=== PATIENT | female | born 1995 | race Caucasian/White ===

== ENCOUNTER 2017-05-11 21:55 | Emergency (ER) | payer SELFPAY ==
[2017-05-11 23:05] VITALS: BP 109/51; PULSE 68; TEMP 98.3; BMI 27.4
== END 2017-05-11 23:06 | disposition left against medical advice (07) ==
LOC: JER 21:55
DX: Z53.21 Procedure and treatment not carried out due to patient leaving prior to being seen by health care provider (principal)
CPT/HCPCS: 99281-25

== ENCOUNTER 2017-10-10 18:41 | Emergency (ER) | payer OTHER ==
[2017-10-10 18:47] VITALS: BP 130/80; PULSE 92; TEMP 98.3; BMI 32.9
--- NOTE | 2017-10-10 18:47 | PDOC ---
Rapid Medical Evaluation Chief Complaint: Pain Time Seen by Provider: 10/10/17 18:45 Medical Evaluation: Allergies Allergy/AdvReac Type Severity Reaction Status Date / Time No Known Allergies Allergy Verified 10/10/17 18:45 10/10/17 18:46 I have performed a brief in-person evaluation of this patient. The Patient presents with a chief complaint of lower abdominal pain with diarrhea x 2 days. G1, approximately 6 weeks . Denies vaginal bleeding, no burning with urination Pertinent physical exam findings are: NAD unlabored breathing no cva tenderness I have ordered the following: urinalysis, urine ordered The patient will proceed to the ED for further evaluation.
[2017-10-10 19:26] LABS: URINE APPEARANCE CLEAR; URINE BILIRUBIN NEGATIVE (NEGATIVE); URINE BLOOD 2+ (NEGATIVE); URINE COLOR LTYELLOW; URINE GLUCOSE (UA) NEGATIVE (NEGATIVE); URINE KETONE NEGATIVE (NEGATIVE); URINE NITRITE NEGATIVE (NEGATIVE); URINE PROTEIN NEGATIVE (NEGATIVE); URINE UROBILINOGEN NEGATIVE mg/dL (0.2-1.0)
[2017-10-10 19:29] LABS: URINE RBC 2; URINE WBC 1
[2017-10-10] MEDS ORDERED: SODIUM CHLORIDE 0.9% 1000 ML INFUS.BAG IV ONE (19:48)
[2017-10-10 20:12] LABS: BASOPHIL 0.6 % (0-2.0); EOSINOPHIL 2.5 % (0-4.5); MCH 28.5 pg (25.7-33.7); MCHC 33.9 g/dl (32.0-36.0); NEUTROPHILS 75.3 % (42.8-82.8); PLATELET COUNT 268 K/MM3 (134-434); RDW 12.8 % (11.6-15.6); WHITE BLOOD COUNT 13.1 K/mm3 (4.0-10.0)
[2017-10-10 20:31] LABS: ALBUMIN 3.7 g/dl (3.4-5.0); ANION GAP 8 (8-16); CALCIUM 8.4 mg/dL (8.5-10.1); CO2 24 mmol/L (21-32); CREATININE 0.7 mg/dL (0.55-1.02); GLUCOSE,RANDOM 102 mg/dL (74-106); SGPT/ALT 55 U/L (12-78); TOT PROT 7.9 g/dl (6.4-8.2)
--- NOTE | 2017-10-10 20:33 | PDOC ---
History of Present Illness - General Chief Complaint: Pain Stated Complaint: ? 6 wks preg , ABDOMINAL PAIN Time Seen by Provider: 10/10/17 18:45 - History of Present Illness Initial Comments: 10/10/17 20:31 CHIEF COMPLAINT: abd pain HISTORY OF PRESENT ILLNESS: 22 yo G1 F approximately 5 wk by LMP presents to ED with LLQ pain x 2 days. Patient denies fever, chills, vomiting, diarrhea, or vaginal bleeding. She denies any urinary symptoms. PAST MEDICAL HISTORY: asthma "but I haven't used my albuterol pump in a long time" FAMILY HISTORY: Denies SOCIAL HISTORY: Denies tobacco, alcohol, illicit drug use. SURGICAL HISTORY: Denies ALLERGIES: No known drug allergies REVIEW OF SYSTEMS General/Constitutional: Denies fever or chills. Denies weakness. HEENT: Denies change in vision. Denies ear pain or discharge. Denies sore throat. Cardiovascular: Denies chest pain or shortness of breath. Respiratory: Denies cough, wheezing, or hemoptysis. Gastrointestinal: intermittent LLQ pain. Denies nausea, vomiting, diarrhea or constipation. Denies rectal bleeding. Genitourinary: Denies dysuria, frequency, or change in urination. Musculoskeletal: Denies neck or back pain. PHYSICAL EXAM General Appearance: Well-appearing, appropriately dressed. No apparent distress. HEENT: EOMI, PERRLA. No conjunctival pallor. No photophobia, scleral icterus. Respiratory/Chest: Lungs CTAB. Cardiovascular: RRR. S1, S2. Gastrointestinal/Abdominal: Normal bowel sounds. Abdomen soft, non-distended. No tenderness or rebound tenderness. No organomegaly, pulsatile mass, guarding , hernia, hepatomegaly, splenomegaly. Musculoskeletal/Extremities: Normal inspection. FROM of all extremities, normal capillary refill. Pelvis Stable. No CVA tenderness. No tenderness to extremities, pedal edema, swelling, erythema or deformity. Integumentary: Appropriate color, dry, warm. No cyanosis, erythema, jaundice or rash Neurologic: component prep operator II-XII intact. Fully oriented, alert. Appropriate mood/affect. Motor strength 5/5. No appreciable EOM palsy, facial droop or sensory deficit. 10/10/17 22:59 10/10/17 23:01 Past History - Past Medical History Allergies/Adverse Reactions: Allergies Allergy/AdvReac Type Severity Reaction Status Date / Time No Known Allergies Allergy Verified 10/10/17 18:45 Home Medications: Ambulatory Orders Albuterol Sulfate Inhaler - [Ventolin Hfa *Inhaler*] 1 - 2 inh IH Q4H PRN Asthma: Yes COPD: No - Suicide/Smoking/Psychosocial Hx Smoking Status: No Smoking History: Never smoked Have you smoked in the past 12 months: No Number of Cigarettes Smoked Daily: 0 Information on smoking cessation initiated: No Hx Alcohol Use: No Drug/Substance Use Hx: No Substance Use Type: None *Physical Exam - Vital Signs Last Vital Signs Temp Pulse Resp BP Pulse Ox 98.3 F 92 H 18 130/80 100 10/10/17 18:46 10/10/17 18:46 10/10/17 18:46 10/10/17 18:46 10/10/17 18:46 ED Treatment Course - LABORATORY CBC & Chemistry Diagram: 10/10/17 19:40 10/10/17 19:40 - ADDITIONAL ORDERS Additional order review: Laboratory Results 10/10/17 10/10/17 19:10 19:10 Urine Color Ltyellow Urine Appearance Clear Urine pH 5.0 Ur Specific [place] 1.013 Urine Protein Negative Urine Glucose (UA) Negative Urine Ketones Negative Urine Blood 2+ H Urine Nitrite Negative Urine Bilirubin Negative Urine Urobilinogen Negative Urine HCG, Qual Positive - Medications Given in the ED: ED Medications Discontinued Medications Generic Name Dose Route Start Last Admin Trade Name Freq PRN Reason Stop Dose Admin Sodium Chloride 1,000 ml 10/10/17 19:48 10/10/17 20:06 Normal Saline - IV 10/10/17 19:49 1,000 ml ONCE ONE Administration Medical Decision Making - Medical Decision Making 10/10/17 23:08 22 yo G1 F approximately 5 wk by LMP presents to ED with LLQ pain x 2 days. -UA, UCx, upreg -CBC, CMP, beta hcg -TV US +upreg beta hcg 275 Ultrasound results + for hemorraghic corpus luteum cyst, patient will f/u with OBGYN this week . *DC/Admit/Observation/Transfer Diagnosis at time of Disposition: Ovarian cyst Qualifiers: Laterality: left Qualified Code(s): N83.202 - Unspecified ovarian cyst, left side - Discharge Dispostion Disposition: HOME Condition at time of disposition: Stable Admit: No - Referrals Referrals: Jose Toledo MD [Primary Care Provider] - Sneha Membreno MD [Staff Physician] - - Patient Instructions Printed Discharge Instructions: DI for Ovarian Cyst Additional Instructions: Please follow up with OBGYN THIS WEEK. If you develop any new abdominal pain, vaginal bleeding (more than one soaked pad an hour), palpitations, weakness, fever, chills, or any new or worsening symptoms, please return to the ER . - Post Discharge Activity
[2017-10-10 20:35] LABS: ALK PHOS 70 U/L (45-117); BILIRUBIN,TOTAL 0.2 mg/dL (0.2-1.0)
[2017-10-10 20:59] LABS: SGOT/AST 22 U/L (15-37)
[2017-10-10 21:29] LABS: URINE LEUK ESTERASE Negative (NEGATIVE)
== END 2017-10-10 23:17 | disposition home or self-care (01) ==
LOC: JER 18:41
DX: O34.81 Maternal care for other abnormalities of pelvic organs, first trimester (principal); N83.12 Corpus luteum cyst of left ovary; Z3A.01 Less than 8 weeks gestation of pregnancy
CPT/HCPCS: 36415; 76817-TC; 80053; 81003; 81015; 84702; 84703; 85025; 99282-25

== ENCOUNTER 2017-11-01 10:02 | Emergency (ER) | payer OTHER ==
[2017-11-01 10:07] VITALS: BP 123/70; PULSE 77; TEMP 98.4; BMI 33.8
--- NOTE | 2017-11-01 10:42 | PDOC ---
Attending Attestation - HPI HPI: 11/01/17 11:01 The patient is a year old female, approximately 8 weeks as per LMP (08/30/17), with no significant past medical history, who presents to the emergency department with nausea and vomiting after [facility] she has a nonviable . The patient reports being informed of a couple of options for completing of her miscarriage and decided on Tuesday to allow a few days to see if she would complete the miscarriage. She presents today after she "[facility] and did not get a response". The patient is seeking a medical . She denies chest pain, shortness of breath, headache and dizziness. She denies fever, chills, diarrhea and constipation. She denies dysuria, frequency, urgency and hematuria. Allergies: NKDA - Physicial Exam PE: 11/01/17 11:01 Vitals: Triage vital signs reviewed General Appearance: No acute distress, well nourished, well developed Head: Atraumatic Neck: Supple; No nuchal rigidity Chest Wall: Nontender Cardiac: Regular rate and rhythm, no murmurs, no rubs, no gallops Lungs: Clear to auscultation bilateral, good air movement bilaterally Abdomen: Soft, nondistended, normal bowel sounds, nontender to palpation Genitourinary: Rectal: Exam deferred Extremities: Full range of motion to all extremities, no cyanosis, clubbing, or edema Skin: Warm and dry, no rashes or lesions, no rash, no petechiae Neuro: AOX3; Cranial Nerves 2-12 grossly intact, Strength intact to all extremities, Sensation intact to all extremities, gait normal Psych: Normal mood, normal affect - Medical Decision Making 11/01/17 11:01 Documentation prepared by Emily Mendez, acting as quality engineer medical device for Ronn Amin MD, <Emily Mendez - Last Filed: 11/01/17 11:01> - Resident Resident Name: Chitra Lira - ED Attending Attestation I have performed the following: I have examined & evaluated the patient, The case was reviewed & discussed with the resident, I agree w/resident's findings & plan, Exceptions are as noted - Medical Decision Making 11/01/17 10:43 Well-appearing no apparent distress presents to the emergency department seeking medical management of blighted ovum for medical . She was at a woman[facility] clinic last week was told to return when she made a decision regarding management she made a phone call there no answered she came to the emergency department This morning she had one episode of vomiting Currently she has no abdominal pain on examination she is tolerating fluids she is well-appearing in no apparent distress Patient [facility] she will return to ED for any severe abdominal pain, persistent nausea vomiting or for any concerns. 11/01/17 14:51 <Ronn Amin - Last Filed: 11/01/17 14:51>
--- NOTE | 2017-11-01 10:53 | PDOC ---
History of Present Illness - General Chief Complaint: Nausea/Vomiting Stated Complaint: NAUSEA/VOMITING, (8 WKS ) Time Seen by Provider: 11/01/17 10:10 - History of Present Illness Initial Comments: 11/01/17 10:33 22yo woman, LMP 10/3, 8 wks reported with non-viable who presents with 1 episode of NBNB emesis after eating breakfast. Last Tuesday women's clinic identified reported "empty vaginal sac" by TVUS. She was offered med and D&C, but opted instead to wait 2 weeks to see if would have a spontaneous . Denies vaginal bleeding. Offers no other complaints or symptoms. Past History - Past Medical History Allergies/Adverse Reactions: Allergies Allergy/AdvReac Type Severity Reaction Status Date / Time No Known Allergies Allergy Verified 11/01/17 10:03 Home Medications: Ambulatory Orders NK [No Known Home Medication] 11/01/17 Asthma: Yes COPD: No - Suicide/Smoking/Psychosocial Hx Smoking Status: No Smoking History: Never smoked Have you smoked in the past 12 months: No Number of Cigarettes Smoked Daily: 0 Information on smoking cessation initiated: No Hx Alcohol Use: No Drug/Substance Use Hx: No Substance Use Type: None *Physical Exam - Vital Signs Last Vital Signs Temp Pulse Resp BP Pulse Ox 98.4 F 77 18 123/70 100 11/01/17 10:04 11/01/17 10:04 11/01/17 10:04 11/01/17 10:04 11/01/17 10:04 - Physical Exam General Appearance: Yes: Nourished, Appropriately Dressed Respiratory/Chest: positive: Lungs Clear, Normal Breath Sounds Cardiovascular: positive: Regular Rhythm, Regular Rate Gastrointestinal/Abdominal: positive: Normal Bowel Sounds, Soft. negative: Tender Neurologic: positive: Fully Oriented, Alert, Normal Mood/Affect Medical Decision Making - Medical Decision Making 11/01/17 10:40 22yo woman with non-viable who presents with 1xepisode NBNB emesis and requesting medical . Suspect nausea/vomiting is related to . Her vital signs are stable and she has a benign abdominal exam. Will PO challenge before discharging. 11/01/17 11:08 Patient tolerated water. No further episodes of nausea vomiting. Will discharge home with instructions to [facility] at [facility]. *DC/Admit/Observation/Transfer Diagnosis at time of Disposition: Nausea & vomiting - Referrals Referrals: Jose Toledo MD [Primary Care Provider] - - Patient Instructions Additional Instructions: Please follow[facility] with [facility] today. Please return to the Emergency Department if you have vaginal bleeding that requires more than 2 pads/hour, intractable vomiting, can't keep down fluids, or new, worsening, or concerning symptoms. - Post Discharge Activity
== END 2017-11-01 11:10 | disposition home or self-care (01) ==
LOC: JER 10:02
DX: O26.891 Other specified pregnancy related conditions, first trimester (principal); Z3A.08 8 weeks gestation of pregnancy; R11.2 Nausea with vomiting, unspecified
CPT/HCPCS: 99282-25

== ENCOUNTER 2017-11-10 08:43 | Day surgery (SDC) | payer OTHER ==
[2017-11-09 10:47] VITALS: BMI 33.8
[2017-11-10] MEDS ORDERED: oxyCODONE HCL 5 MG TABLET PO PRN (09:29)
[2017-11-10] MEDS ORDERED: IBUPROFEN 800 MG/8 ML IJ IVPB PRN (09:29)
[2017-11-10] MEDS ORDERED: ONDANSETRON 4 MG/2 ML VIAL IVPUSH PRN (09:29)
[2017-11-10] MEDS ORDERED: LACTATED RINGERS SOLUTION 1,000 ML IV SCH (09:30)
[2017-11-10] MEDS ORDERED: MIDAZOLAM HCL 2 MG/2 ML SINGLE DOSE VIAL ONE (09:40)
[2017-11-10] MEDS ORDERED: PROPOFOL 20 ML ONE (09:40)
[2017-11-10] MEDS ORDERED: IBUPROFEN 400 MG TABLET (FP) PO PRN (10:19)
[2017-11-10] MEDS ORDERED: ACETAMINOPHEN 325 MG TABLET (FP) PO PRN (10:19)
--- NOTE | 2017-11-10 10:19 | HP ---
History & Physical Update - History History: No Change - Physical Physical: No Change - Assessment Assessment: No Change - Plan Plan: No Change
--- NOTE | 2017-11-10 10:21 | OP ---
Operative Note - Note: Operative Date: 11/10/17 Pre-Operative Diagnosis: Missed Operation: Suction DC Findings: uterus 8 cm Post-Operative Diagnosis: Same as Pre-op Surgeon: Sneha Membreno Anesthesiologist/CHILDCARE AIDE: Mirna Escalante Anesthesia: General Estimated Blood Loss (mls): 30 Operative Report Dictated: Yes
[2017-11-10] MEDS ORDERED: IBUPROFEN 800 MG/8 ML IJ IVPB ONE (10:52)
[2017-11-10 11:00] VITALS: TEMP 97.9
[2017-11-10 12:12] VITALS: BP 115/59; PULSE 88
--- NOTE | 2017-11-11 08:53 | OP ---
DATE OF OPERATION: 11/10/2017 PREOPERATIVE DIAGNOSIS: Missed . OPERATION: Suction dilatation and curettage. POSTOPERATIVE DIAGNOSIS: Missed . SURGEON: Sneha Membreno MD ANESTHESIA: General. ANESTHESIOLOGIST: Mirna Escalante MD DESCRIPTION OF PROCEDURE: Patient was taken to the operating room, placed in dorsal lithotomy position, prepped and draped in the usual sterile fashion. Timeout was performed in accordance with hospital regulations. Speculum was placed in the vagina. Anterior lip of the cervix was grasped with a single-tooth tenaculum. Cervix then dilated to accommodate number 8 suction. Suction curettage was then performed. Specimen was submitted to Pathology for chromosomal analysis. All contents were removed. Tenaculum was removed. Speculum was removed. Count was correct. Patient had tolerated the procedure well. Estimated blood loss: 30 mL. SNEHA MEMBRENO M.D. BARBARA/[id number]
--- NOTE | 2017-11-11 15:06 | PATH ---
Surgical Pathology Report Patient Name: RICH PINEDA [facility]. Rec. #: [id number] /Age/Gender: 1995 (Age: 22) / F Account: [id number] Location: [facility] SUR[facility] Taken: 11/10/2017 Received: 11/10/2017 Reported: 11/11/2017 Physicians: Sneha Membreno M.D. Specimen(s) Received UTERINE CONTENTS Clinical History Missed Final Diagnosis UTERINE CONTENTS, EVACUATION: CHORIONIC VILLI CONSISTENT WITH PRODUCTS OF CONCEPTION, AND PORTIONS OF DECIDUA. Electronically Signed Hugo Crouch M.D. Gross Description Received fresh labeled "contents of uterus," is an 8.5 x 7.0 x 1.0 cm aggregate of vicente red soft tissue fragments. Villous tissue is identified. No somatic tissue is identified. A safety representative portion of villous tissue is placed in RPMI solution and sent for chromosomal analysis. An additional safety representative section of villous tissue is submitted in one cassette. [facility]10[facility]
== END 2017-11-10 12:15 | disposition home or self-care (01) ==
LOC: JASU-SURG 08:43
PROVIDERS: ATTEND Obstetrics & Gynecology
PROC: 10D17Z9 Manual Extraction of Products of Conception, Retained, Via Natural or Artificial Opening (ICD-10-PCS; principal; 2017-11-10 09:45)
DX: O02.1 Missed abortion (principal)
CPT/HCPCS: 86850; 86900; 86901; 88305-TC; 94760

== ENCOUNTER 2018-08-29 13:31 | Emergency (ER) | payer SELFPAY ==
[2018-08-29 13:49] VITALS: BP 105/69; PULSE 64; TEMP 98.6; BMI 35.3
--- NOTE | 2018-08-29 14:32 | PDOC ---
History of Present Illness - General Chief Complaint: Vaginal Bleeding Stated Complaint: vaginal bleeding with clots Time Seen by Provider: 08/29/18 14:10 History Source: Patient - History of Present Illness Timing/Duration: reports: constant Past History - Past Medical History Allergies/Adverse Reactions: Allergies Allergy/AdvReac Type Severity Reaction Status Date / Time No Known Allergies Allergy Verified 08/29/18 13:48 Home Medications: Ambulatory Orders Albuterol Sulfate Inhaler - [Ventolin Hfa Inhaler -] 1 - 2 inh PO PRN PRN Doxycycline Hyclate 100 mg PO BID #6 capsule 11/10/17 Ibuprofen [Motrin -] 600 mg PO QID PRN #28 tablet 11/10/17 Anemia: Yes Asthma: Yes Cancer: No Cardiac Disorders: No CVA: No COPD: No CHF: No Dementia: No Diabetes: No GI Disorders: No Disorders: No HTN: No Hypercholesterolemia: No Liver Disease: No Seizures: No Thyroid Disease: No - Suicide/Smoking/Psychosocial Hx Smoking Status: No Smoking History: Never smoked Have you smoked in the past 12 months: No Number of Cigarettes Smoked Daily: 0 Information on smoking cessation initiated: No Hx Alcohol Use: No Drug/Substance Use Hx: No Substance Use Type: None Hx Substance Use Treatment: No Review of Systems - Review of Systems Constitutional: No: Fever ABD/GI: No: Nausea, Vomiting, Abdominal cramping : No: Discharge *Physical Exam - Vital Signs Last Vital Signs Temp Pulse Resp BP Pulse Ox 98.6 F 64 16 105/69 98 08/29/18 13:46 08/29/18 13:46 08/29/18 13:46 08/29/18 13:46 08/29/18 13:46 - Physical Exam General Appearance: Yes: Appropriately Dressed. No: Apparent Distress HEENT: positive: Normal Voice Neck: positive: Supple Respiratory/Chest: negative: Respiratory Distress Gastrointestinal/Abdominal: positive: Soft. negative: Tender Integumentary: positive: Dry, Warm Neurologic: positive: Fully Oriented, Alert, Normal Mood/Affect ED Treatment Course - LABORATORY CBC & Chemistry Diagram: 08/29/18 15:38 Medical Decision Making - Medical Decision Making 08/29/18 14:29 23-year-old female, , here with vaginal bleeding. Patient states up until April of this year was getting normal monthly periods that would usually come in the middle of the month and lasts for 4-5 days. States in June and July , menses came a little later. LMP started 3 days ago and states she has noticed large blood clots which she has never had in the past and this is why she presented to ER. No heaviy menses now and no abdominal cramping. Denies dizziness, weakness, nausea or vomiting. Not on control See exam Vaginal bleeding M/l menses, r/o preg -labs -anticipate dc w/ gynecological assistant f/u as needed *DC/Admit/Observation/Transfer Diagnosis at time of Disposition: Vaginal bleeding - Discharge Dispostion Disposition: HOME Condition at time of disposition: Good - Referrals Referrals: Jose Toledo MD [Primary Care Provider] - - Patient Instructions Additional Instructions: Your test was negative today and your blood work was normal. You are most likely having your period.. For any further concerns, follow-up with your KNIFE FINISHER - Post Discharge Activity
[2018-08-29 15:45] LABS: BASO % 0.7 % (0-2.0); EOS % 4.1 % (0-4.5); HEMATOCRIT 33.5 % (32.4-45.2); HEMOGLOBIN 11.4 GM/dL (10.7-15.3); LYMPH % 21.5 % (8-40); MCH 28.9 pg (25.7-33.7); MCHC 33.9 g/dl (32.0-36.0); MEAN CELL VOLUME 85.2 fl (80-96); MEAN PLT VOLUME 8.8 fl (7.5-11.1); MONO % 7.4 % (3.8-10.2); NEUT % 66.3 % (42.8-82.8); PLATELET COUNT 268 K/MM3 (134-434); RBC 3.93 M/mm3 (3.60-5.2); RDW 13.2 % (11.6-15.6); WHITE BLOOD COUNT 6.8 K/mm3 (4.0-10.0)
== END 2018-08-29 17:00 | disposition home or self-care (01) ==
LOC: JER 13:31
DX: N93.8 Other specified abnormal uterine and vaginal bleeding (principal)
CPT/HCPCS: 36415; 84703; 85025; 99281-25

== ENCOUNTER 2021-03-02 04:21 | Inpatient (IN) | payer SELFPAY ==
[2021-03-02 06:14] LABS: URIC ACID 4.2 mg/dL (2.6-7.2)
[2021-03-02] MEDS: ELECTROLYTE-148 SOLN 1,000 ML IV SCH ×3 (06:20→16:06)
[2021-03-02 06:28] VITALS: BMI 39.6
[2021-03-02 06:35] LABS: RETICULOCYTES 2.57 % (0.5-1.5)
[2021-03-02 06:51] LABS: BASO % 0.2 % (0-2.0); EOS % 1.8 % (0-4.5); HEMATOCRIT 28.8 % (32.4-45.2); HEMOGLOBIN 9.9 GM/dL (10.7-15.3); LYMPH % 12.4 % (8-40); MCH 29.1 pg (25.7-33.7); MCHC 34.3 g/dl (32.0-36.0); MEAN CELL VOLUME 84.6 fl (80-96); MEAN PLT VOLUME 10.5 fl (7.5-11.1); MONO % 5.8 % (3.8-10.2); NEUT % 79.8 % (42.8-82.8); PLATELET COUNT 227 K/MM3 (134-434); RDW 14.2 % (11.6-15.6); WHITE BLOOD COUNT 11.2 K/mm3 (4.0-10.0)
[2021-03-02 07:01] LABS: PROTHROMBIN TIME (PATIENT) 12.3 SEC (9.7-13.0)
[2021-03-02 07:04] LABS: ACTIVATED PTT 27.9 SECONDS (25.2-36.5)
[2021-03-02 07:10] LABS: POTASSIUM 3.6 mmol/L (3.5-5.1)
[2021-03-02 07:11] LABS: BLOOD UREA NITROGEN 7.3 mg/dL (7-18); CALCIUM 8.5 mg/dL (8.5-10.1)
[2021-03-02 07:15] LABS: CREATININE 0.6 mg/dL (0.55-1.3)
[2021-03-02] MEDS ORDERED: PROMETHAZINE HCL 25 MG/1 ML VIAL IVPUSH ONE (09:09)
[2021-03-02] MEDS ORDERED: DINOPROSTONE 10 MG VAGINAL SUPPOSITORY VG ONE (09:15)
[2021-03-02 13:01] LABS: HIV INTERPRETATION NEGATIVE (NEGATIVE)
[2021-03-02] MEDS ORDERED: PROMETHAZINE HCL 25 MG/1 ML VIAL ONE (15:29)
[2021-03-02] MEDS ORDERED: BUTORPHANOL TARTRATE 2 MG/ML VIAL ONE (15:29)
[2021-03-02] MEDS: BUTORPHANOL TARTRATE 1 MG/ML VIAL IVPB PRN (15:35)
[2021-03-02] MEDS ORDERED: cefTRIAXone SODIUM 1 GM VIAL IM ONE (17:00)
[2021-03-02] MEDS ORDERED: OXYTOCIN 30 UNITS in 0.9% NS 30 UNIT/500 ML INFUS.BAG IVPB SCH (23:43)
[2021-03-03] MEDS ORDERED: BUTORPHANOL TARTRATE 2 MG/ML VIAL ONE (00:38)
[2021-03-03] MEDS ORDERED: OXYTOCIN 30 UNITS in 0.9% NS 30 UNIT/500 ML INFUS.BAG IVPB ONE (00:38)
[2021-03-03] MEDS: ELECTROLYTE-148 SOLN 1,000 ML IV SCH (00:53)
[2021-03-03] MEDS: BUTORPHANOL TARTRATE 1 MG/ML VIAL IVPB PRN (00:53)
[2021-03-03] MEDS ORDERED: AMPICILLIN SODIUM 2 GM VIAL IVPB SCH (02:45)
[2021-03-03] MEDS ORDERED: AMPICILLIN SODIUM 2 GM VIAL ONE (02:56)
[2021-03-03 03:58] VITALS: BP 137/77; PULSE 63; TEMP 98.1
[2021-03-03] MEDS ORDERED: AMPICILLIN SODIUM 1 GM VIAL IVPB SCH (06:45)
[2021-03-05 16:08] LABS: CHENODEOXYCHOLIC ACID 2.8 umol/L (.); CHOLIC ACID CA 2.5 umol/L (.); DEOXYCHOLIC ACID DCA 2.4 umol/L (.); URSODEOXYCHOLIC ACID UDC < 0.10 umol/L (.)
== END 2021-03-03 06:01 | disposition home or self-care (01) | DRG 566 ==
LOC: JDEL 04:21 → JLDR 05:49
PROVIDERS: ADMIT Obstetrics & Gynecology; ATTEND Obstetrics & Gynecology
DX: O26.613 Liver and biliary tract disorders in pregnancy, third trimester (principal); K83.1 Obstruction of bile duct; O99.713 Diseases of the skin and subcutaneous tissue complicating pregnancy, third trimester; L29.8 Other pruritus; Z3A.37 37 weeks gestation of pregnancy
CPT/HCPCS: 36415; 80048; 82542; 82977; 83010; 84450; 84460; 84550; 85025; 85032; 85045; 85610; 85730; 86780; 86850; 86900; 86901; 87081; 87389; C9803; U0003; U0005

== ENCOUNTER 2023-07-25 01:53 | Emergency (ER) | payer OTHER ==
[2023-07-25 02:03] VITALS: BP 107/73; PULSE 67; RESP 18; TEMP 98.2; BMI 32.5
[2023-07-25] MEDS ORDERED: KETOROLAC TROMETHAMINE 15 MG/ML VIAL IM ONE (03:08)
[2023-07-25] MEDS ORDERED: KETOROLAC TROMETHAMINE 15 MG/ML VIAL ONE (03:11)
== END 2023-07-25 03:49 | disposition home or self-care (01) ==
LOC: JER 01:53
PROC: 3E0233Z Introduction of Anti-inflammatory into Muscle, Percutaneous Approach (ICD-10-PCS; principal; 2023-07-25)
DX: M79.602 Pain in left arm (principal); M25.522 Pain in left elbow
CPT/HCPCS: 73070-TC-LT-FY; 99284-25

== ENCOUNTER 2024-07-01 20:44 | Emergency (ER) | payer OTHER ==
[2024-07-01 20:56] VITALS: BP 117/80; PULSE 80; RESP 17; TEMP 98.9; BMI 36.6
[2024-07-01] MEDS: SODIUM CHLORIDE 1,000 ML IV ONE (21:31)
[2024-07-01 21:34] LABS: HEMATOCRIT 35.1 % (32.4-45.2); HEMOGLOBIN 11.6 G/dL (10.7-15.3); MCH 28.4 pg (25.7-33.7); MCHC 33.1 g/dl (32.0-36.0); MEAN CELL VOLUME 85.6 fl (80-96); MEAN PLT VOLUME 9.3 fl (7.5-11.1); PLATELET COUNT 236.2 10^3/uL (134-434); RDW 13.8 % (11.6-15.6)
[2024-07-01 21:55] LABS: ALBUMIN 3.8 g/dl (3.4-5.0); BILIRUBIN,TOTAL 0.4 mg/dl (0.2-1); CALCIUM 8.6 mg/dl (8.5-10.1); CREATININE 0.9 mg/dl (0.6-1.3); MAGNESIUM 1.7 mg/dL (1.8-2.4); PHOSPHOROUS 3.8 (2.5-4.9); POTASSIUM 3.7 mmol/L (3.5-5.1); TOT PROT 6.8 g/dl (6.4-8.2)
== END 2024-07-01 23:20 | disposition home or self-care (01) ==
LOC: FER 20:44
PROC: 3E0337Z Introduction of Electrolytic and Water Balance Substance into Peripheral Vein, Percutaneous Approach (ICD-10-PCS; principal; 2024-07-01)
DX: R19.7 Diarrhea, unspecified (principal); M79.10 Myalgia, unspecified site; Z20.822 Contact with and (suspected) exposure to COVID-19
CPT/HCPCS: 0241U-QW; 36415; 80053; 83735; 84100; 85027; 87045; 87046; 87209; 99284-25

== ENCOUNTER 2024-07-08 18:43 | Emergency (ER) | payer OTHER ==
[2024-07-08 18:48] VITALS: BP 111/74; PULSE 83; RESP 20; TEMP 98.3; BMI 36.6
[2024-07-08 19:59] LABS: BASO % 0.9 % (0-2.0); EOS % 5.2 % (0-4.5); HEMATOCRIT 34.1 % (32.4-45.2); HEMOGLOBIN 11.8 GM/dL (10.7-15.3); MCH 28.6 pg (25.7-33.7); MCHC 34.5 g/dl (32.0-36.0); MEAN PLT VOLUME 8.5 fl (7.5-11.1); MONO % 8.1 % (3.8-10.2); NEUT % 66.8 % (42.8-82.8); PLATELET COUNT 275 10^3/uL (134-434); RBC 4.11 M/mm3 (3.60-5.2); RDW 13.5 % (11.6-15.6); WHITE BLOOD COUNT 8.5 K/mm3 (4.0-10.0)
[2024-07-08 20:26] LABS: POTASSIUM 4.3 mmol/L (3.5-5.1)
[2024-07-08 20:28] LABS: ALBUMIN 3.4 g/dl (3.4-5.0); BLOOD UREA NITROGEN 8.9 mg/dL (7-18); CALCIUM 8.7 mg/dL (8.5-10.1)
[2024-07-08 20:32] LABS: CREATININE 0.9 mg/dL (0.55-1.3)
[2024-07-08 20:33] LABS: BILIRUBIN,TOTAL 0.3 mg/dL (0.2-1); TOT PROT 7.4 g/dl (6.4-8.2)
[2024-07-08 20:34] LABS: ERYTHROCYTE SEDIMENTATION RATE 20 mm/hr (0-20)
[2024-07-08 22:46] LABS: EPI CELLS >36 /uL (0-25.1); HCG,QUALITATIVE URINE Negative; HYALINE CASTS 0 /uL (0-3.1); URINE APPEARANCE CLOUDY; URINE BACTERIA 599 /uL (0-1359); URINE BILIRUBIN NEGATIVE (NEGATIVE); URINE COLOR YELLOW; URINE GLUCOSE (UA) NEGATIVE (NEGATIVE); URINE KETONE NEGATIVE (NEGATIVE); URINE LEUK ESTERASE NEGATIVE (NEGATIVE); URINE NITRITE NEGATIVE (NEGATIVE); URINE PROTEIN TRACE (NEGATIVE); URINE RBC 112 /uL (0-23.9); URINE UROBILINOGEN 0.2 mg/dL (0.2-1.0); URINE WBC 21 /uL (0-25.8)
== END 2024-07-09 00:16 | disposition home or self-care (01) ==
LOC: JER 18:43
DX: R10.31 Right lower quadrant pain (principal); R19.7 Diarrhea, unspecified; R14.0 Abdominal distension (gaseous)
CPT/HCPCS: 36415; 74177-TC; 80053; 81003; 83690; 84703; 85025; 85651; 86140; 87077; 87086; 99285-25; Q9967

== ENCOUNTER 2024-10-03 08:19 | Emergency (ER) | payer OTHER ==
[2024-10-03 08:48] VITALS: BP 105/72; PULSE 75; RESP 18; TEMP 98.5; BMI 36.6
[2024-10-03 09:40] LABS: BASO % 0.5 % (0-2.0); EOS % 2.5 % (0-4.5); HEMATOCRIT 35.6 % (32.4-45.2); HEMOGLOBIN 12.5 GM/dL (10.7-15.3); LYMPH % 17.1 % (8-40); MCH 29.2 pg (25.7-33.7); MCHC 34.9 g/dl (32.0-36.0); MEAN CELL VOLUME 83.5 fl (80-96); MEAN PLT VOLUME 8.5 fl (7.5-11.1); MONO % 4.4 % (3.8-10.2); NEUT % 75.5 % (42.8-82.8); PLATELET COUNT 298 10^3/uL (134-434); RBC 4.27 M/mm3 (3.60-5.2); RDW 13.6 % (11.6-15.6); WHITE BLOOD COUNT 9.4 K/mm3 (4.0-10.0)
[2024-10-03 09:43] LABS: EPI CELLS >36 /uL (0-25.1); HCG,QUALITATIVE URINE Negative; HYALINE CASTS 3 /uL (0-3.1); URINE APPEARANCE TURBID; URINE BACTERIA 95 /uL (0-1359); URINE BILIRUBIN NEGATIVE (NEGATIVE); URINE COLOR YELLOW; URINE GLUCOSE (UA) NEGATIVE (NEGATIVE); URINE KETONE NEGATIVE (NEGATIVE); URINE LEUK ESTERASE NEGATIVE (NEGATIVE); URINE NITRITE NEGATIVE (NEGATIVE); URINE PROTEIN NEGATIVE (NEGATIVE); URINE UROBILINOGEN 0.2 mg/dL (0.2-1.0); URINE WBC 41 /uL (0-25.8)
[2024-10-03 10:08] LABS: CALCIUM 9.2 mg/dL (8.5-10.1)
[2024-10-03 10:09] LABS: ALBUMIN 3.4 g/dl (3.4-5.0); BLOOD UREA NITROGEN 8.2 mg/dL (7-18)
[2024-10-03 10:11] LABS: URINE RBC 222 /uL (0-23.9); YEAST NOT PRESENT (NEGATIVE)
[2024-10-03 10:12] LABS: CREATININE 0.5 mg/dL (0.55-1.3)
[2024-10-03 10:13] LABS: BILIRUBIN,TOTAL 0.4 mg/dL (0.2-1); TOT PROT 7.5 g/dl (6.4-8.2)
[2024-10-03] MEDS ORDERED: ACETAMINOPHEN INJECTION 100 ML ONE (10:37)
[2024-10-03] MEDS: ACETAMINOPHEN 1000 MG/100 ML BAG IVPB ONE (11:42)
[2024-10-03 12:29] LABS: HIV INTERPRETATION NEGATIVE (NEGATIVE)
== END 2024-10-03 12:39 | disposition home or self-care (01) ==
LOC: JER 08:19
PROC: 3E033NZ Introduction of Analgesics, Hypnotics, Sedatives into Peripheral Vein, Percutaneous Approach (ICD-10-PCS; principal; 2024-10-03)
DX: R10.32 Left lower quadrant pain (principal); N83.202 Unspecified ovarian cyst, left side
CPT/HCPCS: 36415; 76830-TC; 80053; 81003; 83690; 84703; 85025; 86803; 87086; 87389; 99284-25; J0131